=== PATIENT | female | born 1940 | race Caucasian/White ===

== ENCOUNTER → 2017-09-05 | Outpatient (CLI) | payer MEDICARE, OTHER ==
--- NOTE | 2017-09-05 20:07 | Diagnostic Imaging Report ---
INDICATION: Screening. The current study was also evaluated with a Computer Aided Detection (CAD) system. COMPARISON: Comparison made with prior examination from 03/19/2011. 3D tomosynthesis was also performed and reviewed. FINDINGS: There is heterogeneously dense fibroglandular tissue bilaterally. There are benign-type calcifications and vascular calcifications. There is no dominant mass, spiculated lesion, or suspicious calcification identified. The skin, nipples, and axillae are unremarkable. IMPRESSION: Benign. ACR BI-RADS Category 2: Benign findings. Result letter will be mailed to the patient. Note: At least 10% of breast cancer is not imaged by mammography. Dictated by: Dictated on workstation # [id number]
== END ==
LOC: RAD 08:43
PROVIDERS: ATTEND Family Medicine
DX: Z12.31 Encounter for screening mammogram for malignant neoplasm of breast (principal)
CPT/HCPCS: 77067

== ENCOUNTER → 2018-03-06 | Outpatient (CLI) | payer MEDICARE, OTHER ==
--- NOTE | 2018-03-06 15:39 | Diagnostic Imaging Report ---
INDICATION: Fall and back pain. TIME OF EXAM: 12:47 PM FINDINGS: Curvature of the lumbar spine is normal. There is grade 2 spondylolisthesis of L5 on S1. Vertebral body heights are maintained. Disc spaces are fairly well-maintained apart from disc space narrowing at L5-S1. The aorta is heavily calcified. There are pars defects at L5-S1. IMPRESSION: Spondylolysis and spondylolisthesis of L5 on S1. No other significant abnormality is seen. Dictated by: Dictated on workstation # [id number]
--- NOTE | 2018-03-06 15:40 | Diagnostic Imaging Report ---
INDICATION: Fall with back pain and injury. TIME OF EXAM: 12:43 PM FINDINGS: Curvature and alignment are normal. There is a compression fracture deformity involving approximately the T9 vertebral body. The age of this is indeterminate. The remaining thoracic vertebrae show normal stature. Pedicles and paraspinous line are intact. IMPRESSION: T9 compression fracture, age-indeterminate. MRI could be performed to evaluate acuity. Dictated by: Dictated on workstation # [id number]
--- NOTE | 2018-03-06 15:41 | Diagnostic Imaging Report ---
INDICATION: Fall and lower rib pain. TIME OF EXAM: 12:44 PM FINDINGS: Multiple views of the left ribs were obtained. No displaced rib fracture is seen. No parenchymal contusion, effusion or pneumothorax is identified. IMPRESSION: No acute abnormality is detected. Dictated by: Dictated on workstation # [id number]
== END ==
LOC: RAD 12:01
PROVIDERS: ATTEND Family Medicine
DX: S22.070A Wedge compression fracture of T9-T10 vertebra, initial encounter for closed fracture (principal); R07.81 Pleurodynia; M43.17 Spondylolisthesis, lumbosacral region; M47.817 Spondylosis without myelopathy or radiculopathy, lumbosacral region; W19.XXXA Unspecified fall, initial encounter
CPT/HCPCS: 71100; 72072; 72100

== ENCOUNTER → 2020-09-24 | Outpatient (CLI) | payer MEDICARE, OTHER ==
[2020-09-24 12:45] LABS: BILIRUBIN,URINE NEGATIVE (NEGATIVE); CLARITY,URINE CLOUDY; COLOR,URINE YELLOW; GLUCOSE, URINE (UA) NEGATIVE (NEGATIVE); KETONES,URINE NEGATIVE (NEGATIVE); LEUKOCYTE ESTERASE ,URINE 3+ (NEGATIVE); NITRITE,URINE NEGATIVE (NEGATIVE); PROTEIN,URINE NEGATIVE (NEGATIVE)
[2020-09-24 13:14] LABS: BACTERIA,URINE TRACE /HPF; WBC,URINE >100 /HPF
== END ==
LOC: LAB 12:20
PROVIDERS: ATTEND Family Medicine
DX: N39.0 Urinary tract infection, site not specified (principal)
CPT/HCPCS: 81000; 87088